=== PATIENT | female | born 1965 | race Caucasian/White ===

== ENCOUNTER 2017-04-19 11:46 | Day surgery (SDC) | payer MEDICAID ==
[~2017-04-19] VITALS: Ht 162.6 cm; Wt 96.7 kg
== END 2017-04-19 14:53 | disposition home or self-care (01) ==
LOC: RAD.S 11:46 → EDSTATUS 13:00 → RAD.S 14:53
PROC: B51WYZZ Fluoroscopy of Dialysis Shunt/Fistula using Other Contrast (ICD-10-PCS; principal; 2017-04-19)
DX: N18.6 End stage renal disease (principal); I87.8 Other specified disorders of veins; Z88.2 Allergy status to sulfonamides; Z88.6 Allergy status to analgesic agent; Z88.8 Allergy status to other drugs, medicaments and biological substances; Z79.899 Other long term (current) drug therapy; Z79.891 Long term (current) use of opiate analgesic; Z79.82 Long term (current) use of aspirin